=== PATIENT | female | born 1995 | race Two or more races ===

== ENCOUNTER 2018-03-03 20:25 | Emergency (ER) | payer OTHER ==
[~2018-03-03] VITALS: Ht 165.1 cm; Wt 58.2 kg
[2018-03-03 20:33] VITALS: BP 128/79
[2018-03-03] MEDS ORDERED: ACETAMINOPHEN/CODEINE#3 (300/30mg) TAB PO ONE (22:00)
== END 2018-03-03 22:32 | disposition home or self-care (01) ==
LOC: ER 20:25
DX: R51 Headache (principal); M26.602 Left temporomandibular joint disorder, unspecified
CPT/HCPCS: 70450